=== PATIENT | female | born 1990 | race American Indian/Alaskan Native ===

== ENCOUNTER 2017-09-02 09:28 | Inpatient (IN) | payer MEDICAID ==
--- NOTE | 2017-08-28 10:25 | History and Physical Report ---
History of Present Illness Date of examination: 09/02/17 Date of admission: 09/02/2017 Chief complaint: 26 yo at 39 wk 2 d EGA admitted for repeat c/s. She had one prior vag del and a subsequent elective c/s for a placenta previa for which she also received 5 u PRBC. She has been anemic during this and a recent hct was 29.9. MBT O pos, Rub Imm and GBS neg. Pt seen and examined DOS and no changes. Wants IUD for contraception. History of present illness: Remainder of H&P from [facility] and confirmed today. CC: pelvic pain. History of Present Illness: This is a 26 years old female who presents with pelvic pain. She denies dysuria, dysmenorrhea, dyspareunia, vaginal itching, vaginal discharge, vaginal odor, painful bowel movements, constipation, diarrhea, nausea, vomiting, back pain and fever. Pain is located umbilicus. She describes the pain as cramping. Duration of pain is <1 min. Episodes are intermittent and unpredictable. 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 Weight (lb): 178 BMI: 28.8 BP: 120/ 70 mm Hg Ur. Protein: negative Ur. Glucose: negative Chief Complaint/Current Status: Patient presents for missed period, she complains of vaginal itching...Nakia Oglesby Menstrual History Regularity: regular Menses every: 28 days Duration: 7 LMP: 12/01/2016 LMP reliability: month known LMP character: normal test type: urine test Date: 06/04/2017 Planned ? no EDC Calculations LMP: 09/07/2017 EDC Confirmation: 09/07/2017 Gestational Age: 26 3/7 weeks Past History : 3 Term Births: 2 Premature Births: 0 Living Children: 2 Para: 2 Mult. Births: 0 Prev : 1 Prev. attempt? 0 Aborta: 0 Elect. Ab: 0 Spont. Ab: 0 Ectopics: 0 # 1 Delivery date: 06/17/2012 Weeks Gestation: 40 labor: no Delivery type: Hours of labor: 8 Anesthesia type: epidural Delivery location: [place] Infant Sex: Female weight: 4-6 Name: Livian Comments: Induction elective # 2 Delivery date: 02/01/2016 Weeks Gestation: 40 labor: no Delivery type: Anesthesia type: spinal Delivery location: [place] Infant Sex: Male weight: 8-9 Name: Inderjit Comments: Placenta previa scheduled Past Medical History: Anemia Blood Transfusion 5 times Past Surgical History: (2015) Family History Summary: Other family member - Has No Family History of Ovarvian Cancer - Entered On: Other family member - Has No Family History of Colon Cancer - Entered On: 2016 Other family member - Has No Family History of Breast Cancer - Entered On: 2016 Other family member - Has Family History of Hypertension - Entered On: 06/04/2017 Other family member - Has Family History of Diabetes - Entered On: 06/04/2017 Social History: [id number] mom Patient is single Risk Factors: Smoked Tobacco Use: Former smoker Cigarettes: Yes Counseled to quit/cut down: yes Drug use: yes Substance: marijuana HIV high-risk behavior: low risk Alcohol use: yes Past Medical History Blood Transfusions: yes Surgery (Non-licensed pharmacist): (2015) Abnormal PAP: negative Uterine Anomaly: negative Social Hx: [id number] mom Patient is single Infection History Hx of STD: none HIV Risk Eval: low risk Hepatitis B Risk Eval: low risk Personal hx. of genital herpes: no Partner hx. of genital herpes: no Genetic History Congenital Heart Defect: Mom: no Dad: no Brittany Disease: Mom: no Dad: no Thalassemia Mom: no Dad: no Neural Tube Defect Mom: no Dad: no Down's Syndrome Mom: no Dad: no Des-Sachs Mom: no Dad: no Sickle Cell Disease/Trait Mom: yes Dad: no Hemophilia Mom: no Dad: no Muscular Dystrophy Mom: no Dad: no Cystic Fibrosis Mom: no Dad: no Brenden Chorea Mom: no Dad: no Mental Retardation Mom: no Dad: no Fragile X Mom: no Dad: no Other Genetic/Chromosomal Disorder Mom: no Dad: no Child w/other defect Mom: no Dad: no Enviromental Exposures Xray Exposure: no Medication, drug, or alcohol use since LMP: no Chemical/Other Exposure: no Exposure to Cat Liter: no Active Medications (reviewed today): FORMULA 27-1 MG ORAL TABS ( VIT-FE FUMARATE-FA) 1 po q day as directed Current Allergies (reviewed today): No known allergies Laboratory Results Date/Time Collected: 06/04/2017 Routine Urinalysis Leukocytes: negative Nitrite: negative Urobilinogen: negative Protein: negative Blood: negative Ketone: negative Bilirubin: negative Glucose: negative Urine HCG: positive Review of Systems General Complains of fatigue. Denies fever, chills, sweats, anorexia, weakness, malaise, weight loss and sleep disorder. Complains of pelvic pain. Denies vaginal discharge, incontinence, dysuria, hematuria, urinary frequency, amenorrhea, menorrhagia, abnormal vaginal bleeding, genital sores, decreased libido, painful periods, painful sex, urinary urgency, hot flashes, vaginal dryness, vaginal itching and vaginal odor. CV Denies chest pains, palpitations, syncope, dyspnea on exertion, orthopnea, PND and peripheral edema. Resp Denies cough, dyspnea at rest, excessive sputum, hemoptysis, wheezing and pleurisy. GI Complains of nausea. Denies vomiting, diarrhea, constipation, change in bowel habits, abdominal pain, melena, hematochezia, jaundice, gas/bloating, indigestion/heartburn, dysphagia and odynophagia. Breast Complains of breast pain. Denies left breast lump, right breast lump, nipple discharge, bloody discharge from nipple, abnormal mammogram and breast enlargement. Psych Complains of anxiety. Denies depression, irritability and mood swings. PHYSICAL EXAM HEENT: normocephalic, no lesions or deformities Neck/Thyroid: supple, thyroid normal Skin no significant abnormal lesions or rashes .Tatoo(s) are present Chest: respiratory effort normal, clear to auscultation Breasts: skin/areolae normal, no masses, no nipple discharge, no erythema/warmth /tenderness, and axillae normal. 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 2) Review normal weight gain and proper nutrition during . 3) Stressed importance of taking folic acid and vitamins. 4) Stressed importance of good dental care and information given. 5) Hazards of smoking and reviewed; smoking cessation strongly encouraged and smoking cessation techniques reviewed. 6) Stressed the risks of alcohol and drug use in including risk of premature delivery, small baby (SGA), abruption, and . 7) Counseled on HIV testing. 8) No work restrictions at this time. 9) Patient agrees that all care provided and delivery performed only at [facility]. 10) Patient recieved guide book and encouraged to read. 11) Patient understands she will be delivered by the MD/CNM management information systems director for the practice. 12) Patient informed Vaginal after C/S are not performed. Medications and Allergies Allergies Allergy/AdvReac Type Severity Reaction Status Date / Time No Known Allergies Allergy Verified 09/02/17 09:54 Results All other labs normal. Assessment and Plan - Patient Problems (1) Previous delivery affecting , antepartum Status: Acute Plan to address problem: repeat c/s (2) Anemia affecting in third trimester Status: Acute (3) with 39 completed weeks gestation Status: Acute
[2017-09-02] MEDS ORDERED: PITOCin/NS 20 UNIT/1000ML DRIP 20 UNITS/1,000 ML BAG IV SCH ×2 (10:00→14:00)
[2017-09-02] MEDS ORDERED: REGLAN IV NR (10:00)
[2017-09-02] MEDS ORDERED: ANCEF/STERILE WATER 2 GM/20 ML 2 GM/20 ML SYRINGE IV NR (10:00)
[2017-09-02] MEDS ORDERED: BICITRA PO NR (10:00)
[2017-09-02] MEDS ORDERED: PEPCID IV NR (10:00)
[2017-09-02] MEDS: LACTATED RINGERS 1,000 ML IV SCH ×2 (10:20→11:12)
--- NOTE | 2017-09-02 10:50 | Anesthesia Consultation ---
Anesthesia Consult and Med Hx Date of service: 09/02/17 - Airway Anesthetic Teeth Evaluation: Poor (some broken, loose teeth) ROM Head & Neck: Adequate Mental/Hyoid Distance: Adequate Mallampati Class: Class II Intubation Access Assessment: Probably Good - Pre-Operative Health Status ASA Pre-Surgery Classification: ASA2 Proposed Anesthetic Plan: Epidural, Spinal - Hematic Hx Anemia: Yes
--- NOTE | 2017-09-02 10:52 | Anesthesia Day of Surgery ---
Anesthesia Day of Surgery - Day of Surgery Patient Examined: Yes Patient H&P Reviewed: Yes Patient is NPO: Yes
[2017-09-02 11:01] LABS: Basophils % (Auto) 0.5 % (0.0-1.8); Eosinophils % (Auto) 1.6 % (0.0-4.3); Mean Corpuscular HGB Conc 30 % (30-34); Platelet Count 255 K/mm3 (140-440); Red Blood Count 4.91 M/mm3 (3.65-5.03); Red Cell Distribution Width 19.6 % (13.2-15.2); White Blood Count 7.5 K/mm3 (4.5-11.0)
[2017-09-02 11:35] LABS: Hematocrit 30.7 % (30.3-42.9); Hemoglobin 9.1 gm/dl (10.1-14.3)
[2017-09-02 11:36] LABS: Mean Corpuscular Hemoglobin 19 pg (28-32); Mean Corpuscular Volume 63 fl (79-97)
[2017-09-02] MEDS ORDERED: MORPHINE ONE (11:44)
[2017-09-02] MEDS ORDERED: WATER FOR IRRIG STERILE IR ONE (11:45)
[2017-09-02] MEDS ORDERED: NACL 0.9% IR ONE (11:45)
[2017-09-02] MEDS ORDERED: BENADRYL IV PRN (12:00)
[2017-09-02] MEDS ORDERED: DILAUDID IV PRN (12:00)
[2017-09-02] MEDS ORDERED: ZOFRAN IV PRN (12:00)
[2017-09-02] MEDS ORDERED: TORADOL IV PRN ×2 (12:00→13:13)
[2017-09-02] MEDS ORDERED: SODIUM CHLORIDE FLUSH SYRINGE 10 ML IV PRN (12:00)
[2017-09-02] MEDS ORDERED: PHENERGAN PR PRN (12:00)
[2017-09-02] MEDS ORDERED: NARCAN 0.4 MG/1 ML IV PRN ×2 (12:00→13:13)
[2017-09-02] MEDS ORDERED: ANCEF/STERILE WATER 2 GM/20 ML IV ONE (12:05)
[2017-09-02] MEDS ORDERED: NACL 0.9% 1000 ML 1,000 ML ONE (12:45)
[2017-09-02] MEDS ORDERED: NEO SYNEPHRINE/NS Syringe(OR USE) IV ONE (13:00)
--- NOTE | 2017-09-02 13:12 | Operative Report ---
Operative Report Operative Report: Date of Procedure: 09/02/2017 Procedure name(s): Repeat transverse low segment section Pre-operative diagnosis: Uterine at 39 weeks, previous section for placenta previa multiple blood transfusions, elective repeat section Post-operative diagnosis: Same Surgeon: Makayla Mcdermott M.D. Residential Leasing Agent: THANH Anesthesia: Spinal EBL: 600mL Infant: 6 lbs. 11 oz. (3043 g) female with Apgars of 8 and 9. Time of : 1231 Findings Normal tubes, uterus and ovaries with a few minor incisions and evidence of previous transverse section somewhat more superior than usual Procedure The patient was taken to the operating room and after adequate anesthesia was obtained she was placed in the supine position in left lateral tilt. Sequential compression devices were in place on both lower extremities and a Vázquez catheter was placed in a sterile fashion. The abdomen was then prepped and draped in the usual fashion. Surgical time-out was done with the entire OR team attentive. A Pfannenstiel incision was made with a scalpel and sharp dissection was carried down through all layers of the abdomen in the usual fashion. The abdomen was entered bluntly and the lower uterine segment was identified. The presenting part was palpated and a bladder flap was created with the Metzenbaum scissors. The scalpel was used to incise the uterus in a transverse fashion and this incision was extended bluntly with finger traction and the membranes were ruptured. My hand was inserted into the uterus. The vertex was grasped, rotated to an OA presentation and delivered with a combination of traction and fundal pressure. The cord was clamped and cut and a viable was suctioned and handed off to the attending NICU staff and was a 6 lbs. 11 oz. (3043 g) female with Apgars of 8 and 9. The placenta was removed manually, the interior of the uterus was cleansed with moist lap packs and the uterus was exteriorized. The uterine incision was closed with a double imbricating layer of 0 Vicryl suture in a running fashion. Hemostasis was adequate and the uterus was returned to the abdomen. Uterus was well contracted. The abdomen was then closed in layers: the rectus muscles were closed with several [id number] sutures of 0 Vicryl, the fascia was closed with running sutures of 0 Vicryl starting at both side corners in turn and tied together in the midline. The subcutaneous tissue was irrigated and then closed with several interrupted sutures of 2-0 plain and the skin was closed with a running subcuticular suture of 4-0 Vicryl. Sponge and Lap count correct X 3, estimated blood loss was 600 mL and the Vázquez was draining clear urine. The patient tolerated the procedure well and was discharged to PACU in good condition.
[2017-09-02] MEDS ORDERED: TUCKS PAD TP PRN (13:13)
[2017-09-02] MEDS ORDERED: TYLENOL PO PRN (13:13)
[2017-09-02] MEDS ORDERED: LANSINOH TP PRN (13:13)
[2017-09-02] MEDS ORDERED: SODIUM CHLORIDE FLUSH SYRINGE 10 ML IV SCH (14:00)
[2017-09-02] MEDS ORDERED: ANCEF/NS 1 GM/50 ML 1 GM/50 ML BAG IV SCH ×2 (18:00→20:00)
[2017-09-02] MEDS: D5LR 1,000 ML IV SCH (19:00)
[2017-09-02] MEDS: BENADRYL PO PRN (20:42)
[2017-09-03] MEDS: BENADRYL PO PRN ×3 (01:50→21:41)
[2017-09-03] MEDS: PERCOCET 5/325 PO PRN ×3 (01:51→17:41)
[2017-09-03] MEDS: D5LR 1,000 ML IV SCH (01:55)
[2017-09-03 02:16] LABS: Hemoglobin 7.5 gm/dl (10.1-14.3)
[2017-09-03] MEDS ORDERED: BOOSTRIX IM ONE (06:00)
--- NOTE | 2017-09-03 08:10 | Progress Note ---
Assessment and Plan patient doing well, no complaints. with good latch, lochia scant , dressing dry and intact (rn to remove during AM care), H&H 7.5/25.0 ( asymptomatic), VSSAF. Continue pathway. - Patient Problems (1) Anemia due to blood loss, acute Current Visit: Yes Status: Acute Plan to address problem: asymptomatic FE supplementation (2) delivery delivered Current Visit: Yes Status: Acute Subjective - Subjective Date of service: 09/03/17 Principal diagnosis: postop day #1 s/p repeat c/s Patient reports: appetite normal, voiding normally, pain well controlled, flatus , ambulating normally, no dizzy ambulation, no nauseated [place]: doing well, nursing well Objective - Vital Signs Latest vital signs: Vital Signs Temp Pulse Resp BP BP Pulse Ox 09/03/17 04:20 98.6 F 77 18 117/81 09/03/17 00:00 98.6 F 77 18 118/79 09/02/17 20:30 98.6 F 77 18 101/76 09/02/17 17:13 97.6 F 70 20 112/75 09/02/17 14:50 97.6 F 77 20 105/64 09/02/17 14:25 116/76 98 09/02/17 14:20 92 H 10 L 121/77 99 09/02/17 14:15 88 16 118/83 99 09/02/17 14:10 86 20 120/84 98 09/02/17 14:05 86 15 128/76 100 09/02/17 14:00 93 H 12 121/86 99 09/02/17 13:55 90 12 114/79 98 09/02/17 13:50 81 15 115/77 99 09/02/17 13:45 91 H 14 131/63 99 09/02/17 13:40 97 H 12 114/81 100 09/02/17 13:35 105 H 22 121/65 99 09/02/17 13:31 91 H 12 121/65 100 09/02/17 13:27 100 09/02/17 10:38 98.6 F 85 16 128/86 128/86 Intake and Output 09/02/17 09/03/17 09/03/17 23:59 07:59 15:59 Intake Total 540 864.583 Output Total 1100 Balance -560 864.583 Intake: IV 864.583 D5lr 1,000 ml @ 125 mls/ 864.583 hr IV DIRECT KELSIE Rx#: [id number] Oral 240 Intake, Free Water 300 Output: Urine 1100 Indwelling Catheter 800 Void 300 Other: Total, Intake Amount 240 Total, Output Amount 800 - Exam Breasts: Present: normal Cardiovascular: Present: Regular rate Lungs: Present: Clear to auscultation, Normal air movement Abdomen: Present: normal appearance, soft, normal bowel sounds Vulva: both: normal Uterus: Present: normal, firm, fundal height at umbilicus Extremities: Present: normal Deep Tendon Reflex Grade: Normal +2 Incision: Present: normal, dry, dressed - Labs Labs: Abnormal lab results 09/02/17 09/03/17 Range/Units 10:15 01:30 Hgb 9.1 L 7.5 L (10.1-14.3) gm/dl Hct 25.0 L (30.3-42.9) % MCV 63 L (79-97) fl MCH 19 L (28-32) pg RDW 19.6 H (13.2-15.2) % Lymph % (Auto) 10.3 L (13.4-35.0) % Miller % (Auto) 12.1 H (0.0-7.3) % Lymph # 0.8 L (1.2-5.4) K/mm3 Miller # 0.9 H (0.0-0.8) K/mm3 Seg Neutrophils % 75.5 H (40.0-70.0) %
[2017-09-03] MEDS: MOTRIN PO PRN ×2 (13:20→19:32)
--- NOTE | 2017-09-03 14:16 | Progress Note ---
Subjective Date of service: 09/03/17 Principal diagnosis: postop day #1 s/p repeat c/s Interval history: 1st POD after repeat Patient is in the bed, comfortable. Pain is well under control. Ambulated well. No residual neurological deficit. Pruritus is mostly controlled with benadryl. No anesthesia complications Objective - Constitutional Vitals: Vital Signs - 12hr 09/03/17 09/03/17 04:20 07:36 Temperature 98.6 F 98.3 F Pulse Rate 77 73 Respiratory 18 16 Rate Blood Pressure 117/81 104/56 [Right] - Labs CBC & Chem 7: 09/03/17 01:30 Labs: Abnormal lab results 09/03/17 Range/Units 01:30 Hgb 7.5 L (10.1-14.3) gm/dl Hct 25.0 L (30.3-42.9) %
[2017-09-04] MEDS: PERCOCET 5/325 PO PRN ×2 (03:34→09:51)
--- NOTE | 2017-09-04 05:54 | Discharge Summary ---
Providers - Providers Date of Admission: 09/02/17 09:28 Date of discharge: 09/04/17 (Pt agrees with d/c) Attending physician: JASSON REESE Primary care physician: MACHINE COIL ASSEMBLER Hospitalization Reason for admission: section Delivery: Procedure: repeat low transverse Episiotomy: none Laceration: none Incision: normal, dry, intact Other procedures: none complications: none Discharge diagnosis: IUP at term delivered [place] baby: female Hospital course: uncomplicated repeat section chronic anemia - pt is asymptomatic Pt A&O X 3 No c/o voiced VSS FF below umb Lochia scant Incision D&I H&H 05/14 pt has not had any s/sx of anemia Will RX po iron @ d/c Doing well s/p section P: d/c today with instructions RTO 1 week postop visit Condition at discharge: Good Disposition: DC-01 TO HOME OR SELFCARE - Discharge Diagnoses (1) delivery delivered Status: Acute Comment: rto 1 week postop visit Plan - Discharge Medications Prescriptions: Ibuprofen [Motrin 800 MG tab] 800 mg PO Q8HR PRN #30 tablet PRN Reason: Pain oxyCODONE /ACETAMINOPHEN [Percocet 5/325 mg] 1 - 2 tab PO Q4HR PRN #30 tab PRN Reason: Pain - Provider Discharge Summary Activity: routine, no sex for 6 weeks, no heavy lifting 4 weeks, no strenuous exercise Diet: routine Instructions: routine Additional instructions: [] Smoking cessation referral if applicable(refer to patient education folder for contact #) [] Refer to [facility]'s [facility] Booklet Call your doctor immediately for: * Fever > 100.5 * Heavy vaginal bleeding ( >1 pad per hour) * Severe persistent headache * Shortness of breath * Reddened, hot, painful area to leg or breast * Drainage or odor from incision. * Keep incision clean and dry at all times and follow doctor's instructions regarding bathing/showering - Follow up plan Follow up: PRIMARY CARE, [Primary Care Provider] - 7 Days VIDHI CANDELARIA CNM [Advanced Practice Nurse] - 7 Days (Congratulations! please call [phone] to schedule your postoperative visit in 1 week. Take medications as prescribed. Call with concerns.)
[2017-09-04 08:59] VITALS: BP 119/87
[2017-09-04] MEDS: MOTRIN PO PRN (09:51)
== END 2017-09-04 13:27 | disposition home or self-care (01) | DRG 765 ==
LOC: APU 09:28 → OB 14:56
PROVIDERS: ADMIT Obstetrics & Gynecology; ATTEND Obstetrics & Gynecology
PROC: 10D00Z1 Extraction of Products of Conception, Low, Open Approach (ICD-10-PCS; principal; 2017-09-02)
DX: O34.211 Maternal care for low transverse scar from previous cesarean delivery (principal); D62 Acute posthemorrhagic anemia; O99.324 Drug use complicating childbirth; F12.90 Cannabis use, unspecified, uncomplicated; O99.02 Anemia complicating childbirth; Z3A.39 39 weeks gestation of pregnancy; Z37.0 Single live birth; Z87.891 Personal history of nicotine dependence; Z71.6 Tobacco abuse counseling
CPT/HCPCS: 36415; 85014; 85018; 85025; 86850; 86900; 86901; 90715; 99211; G0463; J0690; J1200; J1885; J2270; J2370; J2590; J2765; J7030; J7120; J7121